=== PATIENT | male | born 1950 | race Caucasian/White ===

== ENCOUNTER → 2017-07-15 | Outpatient (CLI) | payer MEDICARE ==
[~2017-07-15] MED LIST: AMLODIPINE BES2.5 MG PO; OMEPRAZOLE20 M2 PO; TERAZOSIN5 MG PO; XANAX0.25 MG PO; ZOFRAN ODT4 MG SL
== END | disposition home or self-care (01) ==
LOC: ORTHO 01:59
DX: M17.12 Unilateral primary osteoarthritis, left knee (principal)

== ENCOUNTER 2023-02-18 12:02 | Emergency (ER) | payer MEDICARE ==
[~2023-02-18] VITALS: Ht 167.6 cm; Wt 97.5 kg
[~2023-02-18 12:02] MED LIST changes: +B COMPLEX1 EACH PO; +CETIRIZINE10 MG PO; +NITROSTAT0.4 MG SL; +PROAIR HFA8.5 GM INH
[2023-02-18] MEDS ORDERED: METHOCARBAMOL500 M1 PO (12:35)
[2023-02-18] MEDS ORDERED: PREDNISONE50 MG PO (12:35)
== END 2023-02-18 12:52 | disposition home or self-care (01) ==
LOC: ED 12:02
DX: M54.42 Lumbago with sciatica, left side (principal); M79.604 Pain in right leg; M79.605 Pain in left leg; I10 Essential (primary) hypertension; J45.909 Unspecified asthma, uncomplicated; F32.A Depression, unspecified; Z88.2 Allergy status to sulfonamides; Z98.890 Other specified postprocedural states

== ENCOUNTER → 2023-10-21 | Outpatient (CLI) | payer MEDICARE ==
[~2023-10-21] MED LIST changes: +METHOCARBAMOL500 M1 PO; +PREDNISONE50 MG PO
== END | disposition home or self-care (01) ==
LOC: LAB 17:33
PROVIDERS: ATTEND Nurse Practitioner Family
DX: U07.1 COVID-19 (principal)